=== PATIENT | male | born 1960 | race Caucasian/White ===

== ENCOUNTER 2020-06-23 09:57 | Inpatient (IN) | payer OTHER ==
[~2020-06-23] VITALS: Ht 172.7 cm; Wt 77.1 kg
--- NOTE | ~2020-06-23 | HC ---
[facility] [place] [address] CONSULTATION Name: SANDEE JAMES Room #: 450-P ADM IN M.R.#: [id number] Admission: 06/23/20 Attend Phys: Margoth Mcgee MD Discharge: Date of : 62 Report #: [id number] THIS REPORT FOR: cc: PREETHI - Family physician unknown FAM - Family physician unknown Patrick Davis MD ~ DATE OF SERVICE: 06/23/2020 HISTORY OF PRESENT ILLNESS: A 60-year-old male patient who was evaluated by me for any neurological etiology for the patient's dizziness. The patient was discussed with the Emergency Room physician who has called me. She has indicated that this patient has severe dizziness and nystagmus. Part of it was upgoing nystagmus. They have tried to make him walk on multiple occasions apparently was not able to walk. The patient indicates that he had a few episodes of dizziness a couple of weeks ago. He also has ringing in the ears. His brother also has some inner ear problem. REVIEW OF SYSTEMS: Negative for any stroke in the past, but this patient drinks alcohol every day. He smokes every day and he smokes marijuana. He says that he does not do that on a regular basis, but he has done it for the last few days. Otherwise, his 14-point review of system was negative. He was not having any diplopia, any chest pain, respiratory difficulty, GI, , musculoskeletal, constitutional, dermatological, hematological, psychiatric, throat, allergic symptom associated with present symptomatology. PAST MEDICAL HISTORY: Positive for this kind of dizziness, but it happened just a few days ago. FAMILY HISTORY: Positive for dizziness because of inner ear problem. SOCIAL HISTORY: He drinks 3-4 beers every day. He drinks hard liquor, but he did not specify the quantity. He smokes every day about 15 cigarettes a day. He smokes marijuana, but he says that he does not do it on a regular basis. PHYSICAL EXAMINATION: Indicate he is alert, responsive, able to follow simple and complex command. His speech, concentration, fund of knowledge and memory is at his baseline. Cranial nerve examination 2-12 looks unremarkable. On my examination, he does not appear to have any nystagmus. He does not have any meningeal sign. His strength, sensation, reflexes and tone is symmetrical. There is no cerebellar sign. I did not make him walk. There is no meningeal sign. His blood pressure is 132/78, respirations 15, and pulse is 73. LABORATORY DATA: Indicated normal creatinine at 0.7. He did undergo a CT angiogram of the head and neck, which was unremarkable. [address] [address] CONSULTATION Name: SANDEE JAMES Room #: 450-P [facility] IN M.R.#: [id number] Admission: 06/23/20 Attend Phys: Margoth Mcgee MD Discharge: Date of : 62 Report #: [id number] IMPRESSION: It is unlikely that there is any neurological etiology for the patient's dizziness. I will suggest working him up for known neurological etiologies including ENT pathology. His MRI is pending. If that is approved and done, I will look at it to make sure there is no other cause for dizziness, but looking at all the data available so far, it is unlikely that there is any neurological etiology for this patient's dizziness. ENT consult is already ordered and we will see what they say. I do not plan to follow up of this patient until there is any abnormality on the MRI, but please call if there are any questions or further neurological followup is needed. Thank you very much for this referral. By: [id number] Patrick Davis MD /nt
[2020-06-23 09:58] VITALS: BP 144/81
[2020-06-23] MEDS ORDERED: ALLOPURINOL 10100 M3 PO (10:15)
[2020-06-23 10:26] LABS: ABSOLUTE NEUTROPHILS 4.2 thou/uL (1.4-8.2); BASOPHILS 0.4 % (0.0-2.0); EOSINOPHILS 0.9 % (0.0-3.0); HEMATOCRIT 40.1 % (42.0-52.0); HEMOGLOBIN 13.6 gm/dL (14.0-18.0); LYMPHOCYTES 12.6 % (24.0-44.0); MCH 33.1 pg (26.0-34.0); MCHC 33.9 g/dL (28.0-37.0); MCV 97.6 fL (80.0-100.0); PLATELET COUNT 167 thou/uL (150-400); POLYS 74.1 % (36.0-66.0); RBC 4.11 mil/uL (4.50-6.00); RDW 13.4 % (10.5-14.5); WBC 5.6 thou/uL (4.0-11.0)
[2020-06-23 10:45] LABS: ANION GAP 7 mmol/L (7-16); BUN 17 mg/dL (7-18); CALCIUM 9.1 mg/dL (8.5-10.1); CHLORIDE 101 mmol/L (98-107); CO2 28 mmol/L (21-32); CREATININE 0.7 mg/dL (0.7-1.3); GLUCOSE 135 mg/dL (74-106); POTASSIUM 3.9 mmol/L (3.5-5.1); SODIUM 136 mmol/L (136-145)
[2020-06-23 10:58] LABS: ALBUMIN 4.1 g/dL (3.4-5.0); SGOT 26 U/L (15-37); SGPT 35 U/L (16-63); TOTAL BILIRUBIN 0.4 mg/dL (0.2-1.0); TROPONIN-I <0.06 ng/mL (<0.06)
--- NOTE | 2020-06-23 13:14 | EKG ---
[address] [employer] [address] ELECTROCARDIOGRAM REPORT Name: SANDEE JAMES Room #: REG MATT Lino#: [id number] Admission: 06/23/20 Attend Phys: Discharge: Date of : 62 Report #: [id number] [facility] ED Test Date: 2020-06-23 Test Time: 10:21:08 Pat Name: SANDEE JAMES Department: Room: Gender: M Freight Loading Supervisor: larisa : 1960 Requested By: Luh Muhammad Order Number: [id number] MD: Ephraim Ely Measurements Intervals [place] Rate: 74 P: 65 VT: 177 QRS: 30 QRSD: 100 T: 29 QT: 414 QTc: 460 Interpretive Statements Sinus rhythm Probable left atrial enlargement No previous ECG available for comparison Electronically Signed On 06-23-2020 13:13:53 SENIOR RESEARCH MANAGER by Ephraim Ely [email or web address] <ELECTRONICALLY SIGNED> By: Ephraim Ely MD 06/23/20 1313 1021 1021 Ephraim Ely MD /EPI
[2020-06-23 13:55] LABS: URINE BILIRUBIN NEGATIVE (Negative); URINE BLOOD NEGATIVE (Negative); URINE CLARITY CLEAR; URINE COLOR YELLOW; URINE GLUCOSE-RANDOM* 2+ (Negative); URINE KETONES NEGATIVE (Negative); URINE LEUKOCYTES-REFLEX NEGATIVE (Negative); URINE NITRITE-REFLEX NEGATIVE (Negative); URINE PROTEIN (DIPSTICK) NEGATIVE (Negative); URINE SPECIFIC GRAVITY 1.015 (1.005-1.035); URINE UROBILINOGEN 0.2 E.U./dl (0.2-1.0)
[2020-06-23 14:04] LABS: AMP/METHAMP Negative (Negative); BARBITURATES Negative (Negative); BENZODIAZEPINES Negative (Negative); COCAINE Negative (Negative); METHADONE Negative (Negative); OPIATES Negative (Negative); PCP Negative (Negative)
[2020-06-23 16:32] LABS: FOLIC ACID 12.3 ng/mL (8.6-58.9)
--- NOTE | 2020-06-23 17:30 | NUR ---
SPOKE WITH DR. ANGELITO ORTIZ, ENT, REGARDING PT VERTIGO. DOCTOR ORDERD VALIUM 5 MG PO Q4H. DOCTOR WILL COME SEE PT TOMORROW.
[2020-06-23 18:04] VITALS: BP 125/77
--- NOTE | 2020-06-23 18:23 | NUR ---
SPOKE WITH JOSE, ORDERED TO HOLD MECLIZINE NEXT DOSE. WILL INFORM FLOOR NURSE WHEN REPORT IS GIVEN
[2020-06-23 18:29] VITALS: BP 119/76
[2020-06-23 19:15] VITALS: BP 148/91
--- NOTE | 2020-06-24 03:05 | NUR ---
PT CAME TO THE UNIT AT ABOUT 1800.PT MADE COMORTABLE IN BED.PT ADMITTED WITH C/O DIZZINESS.PT HAD RINGING EARS AND FEELING DIZZY AND UNSTEADY WHEN WALKING.PT IS A/0 X4.PT IS UP WITH X1 ASSIST.PT IS ON ROOM AIR.PT DENIED PAIN ,NAUSEA AND VOMITING AND DIARRHEA.PT ADMISSION COMPLETED AND ASSESSMENT COMPLETED.IV ACCESS ON LT FA WITH NS AT 100CC/HR.FALL PRECAUTION IN PLACE.WILL CONTINUE TO MONITOR POC
[2020-06-24 05:36] VITALS: BP 150/92
[2020-06-24 05:44] LABS: ABSOLUTE NEUTROPHILS 4.3 thou/uL (1.4-8.2); BASOPHILS 0.5 % (0.0-2.0); EOSINOPHILS 1.9 % (0.0-3.0); HEMATOCRIT 39.3 % (42.0-52.0); HEMOGLOBIN 13.2 gm/dL (14.0-18.0); LYMPHOCYTES 17.4 % (24.0-44.0); MCH 33.1 pg (26.0-34.0); MCHC 33.6 g/dL (28.0-37.0); MCV 98.6 fL (80.0-100.0); PLATELET COUNT 152 thou/uL (150-400); POLYS 69.2 % (36.0-66.0); RBC 3.98 mil/uL (4.50-6.00); RDW 13.1 % (10.5-14.5); WBC 6.2 thou/uL (4.0-11.0)
[2020-06-24 06:28] LABS: CALCIUM 8.7 mg/dL (8.5-10.1); CREATININE 0.8 mg/dL (0.7-1.3); MAGNESIUM 1.6 mg/dL (1.8-2.4); POTASSIUM 3.5 mmol/L (3.5-5.1)
[2020-06-24 09:41] VITALS: BP 144/97
--- NOTE | 2020-06-24 13:26 | NUR ---
PT ADMITTED RELATED TO DIZZINESS. CM REVIEWED CAHRT AND SOPKE WITH CARE TEAM. CM MET WITH PT AT BEDSIDE THIS DAY. PT APPEARED TO BE A&O X4. CM ROLE INTRODUCED. PT INDICATED HE LIVES ALONE IN A HOUSE WITH 1 STEP TO ENTER AND A FULL FLIGHT OF STEPS TO BASEMENT. 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 PT INDICATED NO HH HX OR OP THERAPY. PT INDICATED HE PLANS TO RETURN HOME ONCE MEDICALLY STABLE. PT DEEPTHI PTAND INDICATED LIKELY NO NEEDS UPON DC. ENT CONSULTED. POSSIBLE DC HOME ANTICPATED AFTER SEEN. PT WOULD HAVE TRANSPORT HOME THIS DAY.
[2020-06-24] MEDS ORDERED: MECLIZINE HCL25 MG PO (13:35)
[2020-06-24] MEDS ORDERED: FLONASE 0.05%50 MCG NARES (13:35)
[2020-06-24 16:32] VITALS: BP 144/97
--- NOTE | 2020-06-24 16:53 | NUR ---
ASSUMED CARE OF PT AT SHIFT CHANGE. ASSESSMENTS CHARTED. MEDS GIVEN PER JUN. PT A&OX4, NO C/O PAIN OR NAUSEA. REPORTS A BIT DIZZY IN THE MORNING. MRI COMPLETE. DISCHARGE ORDERS AND INSTRUCTIONS COMPLETE. PT REPORTS FEELING MUCH BETTER. IV AND TELE DC'D. PT TAKEN TO MAIN ENTRANCE VIA WHEELCHAIR BY MOTOR COACH SUPERVISOR.
== END 2020-06-24 16:45 | disposition home or self-care (01) | DRG 156 ==
LOC: ER 09:57 → 4W 15:21 → EROBS 15:21 → 4W 18:33
PROVIDERS: Emergency Medicine; Nurse Practitioner; ADMIT Internal Medicine; ATTEND Internal Medicine
DX: H93.12 Tinnitus, left ear (principal); R27.0 Ataxia, unspecified; F19.10 Other psychoactive substance abuse, uncomplicated; J32.9 Chronic sinusitis, unspecified; Z79.899 Other long term (current) drug therapy; Z88.0 Allergy status to penicillin
CPT/HCPCS: 10045